=== PATIENT | male | born 1965 | race Caucasian/White ===

== ENCOUNTER 2016-10-21 19:28 | Emergency (ER) | payer BC ==
[2016-10-21 21:05] VITALS: BP 117/85
[2016-10-21 22:42] LABS: Hematocrit 43 % (42-52); Hemoglobin 14.9 g/dl (14.0-18.0); Mean Corpuscular HGB Conc 35 g/dl (31-36); Mean Corpuscular Hemoglobin 33 pg (27-31); Mean Corpuscular Volume 97 fL (80-94); Mean Platelet Volume 9 um3 (7.4-10.4); Red Blood Count 4.49 10^6/ul (4.0-5.4); Red Cell Distribution Width 13 % (10.5-15); White Blood Count 6.8 10^3/ul (3.5-10.8)
[2016-10-21] MEDS ORDERED: predniSONE TAB* 20 MG PO ONE (22:59)
[2016-10-21] MEDS ORDERED: Clindamycin CAP* 150 MG PO ONE (22:59)
--- NOTE | 2016-10-21 23:10 | ED ---
Upper Extremity Pain - HPI Summary HPI Summary: Patient presents to ED with CC of right forearm and hand swelling x 1 week. Today, developed redness and warmth over the ventral side of the wrist. Pain with flexion and extension. No known injury. Pain is worse with extension and radiates to the elbow. No abrasions or cuts or bug bites noted or to patients knowledge. Denies previous tendonitis or overuse to the hand or wrist. Denies numbness or tingling, but states it is a "tight" feeling. Pain is 8/10 and constant. Ibuprofen with mild relief of symptoms. - History of Current Complaint Chief Complaint: EDExtremityUpper Stated Complaint: RIGHT FOREARM PAIN AND SWELLING Time Seen by Provider: 10/21/16 21:13 Hx Obtained From: Patient Mechanism Of Injury: Twisted Onset/Duration: Started Hours Ago Timing: Constant Severity Initially: Moderate Severity Currently: Moderate Pain Location: Collar, Shoulder, Elbow, Forearm, Wrist Character: Aching, Throbbing Aggravating Factor(s): Lifting, Flexion, Extension, Internal/External Rotation, Abduction, Adduction Alleviating Factor(s): Rest, Ice Associated Signs & Symptoms: Positive: Swelling - Risk Factors Non-Orthopedic Risk Factor: Negative DVT Risk Factors: Negative Septic Arthritis Risk Factor: Negative Compartment Syndrome Risk Factors: Pain - Allergies/Home Medications Allergies/Adverse Reactions: Allergies Allergy/AdvReac Type Severity Reaction Status Date / Time Ceftriaxone [From Rocephin] Allergy Rash And Verified 10/21/16 19:46 Itching Penicillins [PCN] Allergy Unknown Verified 10/21/16 19:47 Reaction Details PMH/Surg Hx/FS Hx/Imm Hx Previously Healthy: Yes - Immunization History Hx Pertussis Vaccination: No Immunizations Up to Date: Unable to Obtain/Confirm Infectious Disease History: No Infectious Disease History: Denies: Traveled Outside the [place] in Last 30 Days - Social History Occupation: Unemployed Lives: With Family Alcohol Use: None Hx Substance Use: No Substance Use Type: Reports: None Hx Tobacco Use: No Smoking Status (MU): Never Smoked Tobacco Review of Systems Constitutional: Negative Eyes: Negative Cardiovascular: Negative Respiratory: Negative Gastrointestinal: Negative Positive: Arthralgia, Myalgia Positive: Other - swelling throughout right hand Neurological: Negative Psychological: Normal All Other Systems Reviewed And Are Negative: Yes Physical Exam Triage Information Reviewed: Yes Vital Signs On Initial Exam: Initial Vitals Temp Pulse Resp BP Pulse Ox 97.6 F 84 16 134/100 98 10/21/16 19:40 10/21/16 19:40 10/21/16 19:40 10/21/16 19:40 10/21/16 19:40 Vital Signs Reviewed: Yes Appearance: Positive: Well-Appearing, Well-Nourished Skin: Positive: Warm, Skin Color Reflects Adequate Perfusion Head/Face: Positive: Normal Head/Face Inspection Eyes: Positive: EOMI, BRIANNE Neck: Positive: Supple, No Lymphadenopathy Respiratory/Lung Sounds: Positive: Clear to Auscultation, Breath Sounds Present Cardiovascular: Positive: Normal, RRR, Pulses are Symmetrical in both Upper and Lower Extremities Musculoskeletal: Positive: Other - right hand swelling, pain with flexion and extension of wrist Neurological: Positive: Sensory/Motor Intact, Alert, Oriented to Person Place, Time, Speech Normal Psychiatric: Positive: Normal AVPU Assessment: Alert Diagnostics - Vital Signs Vital Signs Temp Pulse Resp BP Pulse Ox 10/21/16 21:13 98 F 89 16 117/85 97 10/21/16 20:30 98.0 F 89 117/85 97 10/21/16 19:40 97.6 F 84 16 134/100 98 - Laboratory Lab Results: Lab Results 10/21/16 10/21/16 Range/Units 22:35 22:35 WBC 6.8 (3.5-10.8) 10^3/ul RBC 4.49 (4.0-5.4) 10^6/ul Hgb 14.9 (14.0-18.0) g/dl Hct 43 (42-52) % MCV 97 H (80-94) fL MCH 33 H (27-31) pg MCHC 35 (31-36) g/dl RDW 13 (10.5-15) % Plt Count 297 (150-450) 10^3/ul MPV 9 (7.4-10.4) um3 Neut % (Auto) 39.2 (38-83) % Lymph % (Auto) 46.6 (25-47) % Eddy % (Auto) 7.7 (1-9) % Eos % (Auto) 5.3 (0-6) % Baso % (Auto) 1.2 (0-2) % Absolute Neuts (auto) 2.7 (1.5-7.7) 10^3/ul Absolute Lymphs (auto) 3.2 (1.0-4.8) 10^3/ul Absolute Monos (auto) 0.5 (0-0.8) 10^3/ul Absolute Eos (auto) 0.4 (0-0.6) 10^3/ul Absolute Basos (auto) 0.1 (0-0.2) 10^3/ul Absolute Nucleated RBC 0.01 10^3/ul Nucleated RBC % 0.1 C-React Prot High Sens 0.72 mg/L Result Diagrams: 10/21/16 22:35 Lab Statement: Any lab studies that have been ordered have been reviewed, and results considered in the medical decision making process. Course/Dx - Course Course Of Treatment: US with no DVT. CRP and WBC WNL. Patient given abx and prednisone for possible tenosynovitis vs. tendinitis and infection. Dr. Mack to see patient as well and agrees with plan. No known trauma, so will defer xrays at this time. - Diagnoses Differential Diagnosis/HQI/PQRI: Positive: Contusion, Fracture (Open), Strain, Sprain Provider Diagnoses: Wrist pain, acute Discharge - Discharge Plan Condition: Stable Disposition: HOME Prescriptions: Clindamycin Cap(NF) [Cleocin 300 mg Cap(NF)] 300 mg PO Q6H #28 cap predniSONE TAB* [Deltasone TAB*] 50 mg PO DAILY #5 tab MDD 1 Patient Education Materials: Edema (ED) Referrals: Greyson Carias MD [Primary Care Provider] - Additional Instructions: Take ibuprofen 600mg three times daily Ice for any swelling Prednisone 50mg once daily in the morning for 5 days clindamycin four times daily for 7 days If any symptoms worsen, return to the ED.
--- NOTE | 2016-10-22 07:57 | RAD ---
HISTORY: Right hand and arm swelling COMPARISONS: None relevant TECHNIQUE: Multiple transverse and longitudinal ultrasound images were obtained of the right upper extremity from the level of the internal jugular vein inferiorly through to the infra-cubital veins using grayscale, color Doppler, and spectral Doppler imaging with and without compression and with augmentation. Comparison images were obtained of the contralateral internal jugular vein and subclavian vein. FINDINGS: VEINS: The venous system of the right upper extremity is compressible throughout its course, with normal flow on color Doppler imaging and normal response to augmentation on spectral Doppler imaging. SOFT TISSUES: Unremarkable. OTHER FINDINGS: None. IMPRESSION: NO RIGHT UPPER EXTREMITY DEEP VEIN THROMBOSIS
== END 2016-10-21 23:25 | disposition home or self-care (01) ==
LOC: ED 19:28
DX: M25.531 Pain in right wrist (principal); Z88.1 Allergy status to other antibiotic agents; Z88.0 Allergy status to penicillin
CPT/HCPCS: 36415; 85025; 86141; 99282; A9270-GY; J7512

== ENCOUNTER 2017-07-31 07:00 | Day surgery (SDC) | payer BC ==
[~2017-07-31 07:00] MED LIST: Buffered Lidocaine 0.9% SYRIN* 5 ML/SYR SYRINGE INTRADERM ONE
[2017-07-31] MEDS ORDERED: ceFAZolin 2 GM PREMIX (*) 2 GM/50 ML BAG IVPB ONE (07:13)
[2017-07-31] MEDS ORDERED: Buffered Lidocaine 0.9% SYRIN* 5 ML/SYR SYRINGE ONE (07:13)
[2017-07-31] MEDS ORDERED: Bupivacaine 0.25% SDV* 30 ML ONE (09:04)
[2017-07-31] MEDS ORDERED: Midazolam* 1 MG/ML 2 ML VIAL (2 MG) ONE (09:20)
[2017-07-31] MEDS ORDERED: fentaNYL* 50 MCG/ML 2 ML VIAL (100 MCG VIAL) ONE ×3 (09:20→13:11)
[2017-07-31] MEDS ORDERED: Lidocaine 2% PF * 5 ML VIAL ONE (09:23)
[2017-07-31] MEDS ORDERED: Dexamethasone IV* 4 MG/ML 1 ML (4 MG) ONE (09:23)
[2017-07-31] MEDS ORDERED: Ondansetron INJ* 2 MG/ML VIAL ONE (09:23)
[2017-07-31] MEDS ORDERED: Propofol* 10 MG/ML 20 ML BTL IV PUSH ONE (09:23)
[2017-07-31] MEDS ORDERED: Atracurium* 10 MG/ML 10 ML VIAL ONE (09:24)
[2017-07-31] MEDS ORDERED: Naloxone* 0.4 MG/ML 1 ML VIAL IV PRN (10:00)
[2017-07-31] MEDS ORDERED: DiMENhydriNATE IV* 50 MG/ML VIAL IV PUSH PRN (10:00)
[2017-07-31] MEDS ORDERED: fentaNYL* 50 MCG/ML 2 ML VIAL (100 MCG VIAL) IV PRN (10:00)
[2017-07-31] MEDS ORDERED: Ketorolac INJ* 30 MG/ML 1 ML VIAL IV PRN (10:00)
--- NOTE | 2017-07-31 10:53 | OP ---
Operative Report - Blank - Operative Report Date of Operation: 07/31/17 Note: Preop Dx: Right inguinal hernia Postop Dx: same; also umbilical hernia Procedure: laparoscopic repair RIH w/ mesh; open umbilical hernia repair ( primary) Anesthesia: GET Surgeon: Eve Asst: AUSTIN Arroyo Fluids: 900 ml EBL: negligible Specimen: none Drains: none Findings: dictated
[2017-07-31] MEDS ORDERED: Ketorolac INJ* 30 MG/ML 1 ML VIAL ONE (11:36)
[2017-07-31] MEDS ORDERED: oxyCODONE/Acetamin 5/325 MG* TAB ONE ×2 (11:56→13:14)
[2017-07-31] MEDS: oxyCODONE/Acetamin 5/325 MG* TAB PO PRN ×2 (11:57→13:15)
[2017-07-31 14:15] VITALS: BP 126/86
--- NOTE | 2017-07-31 18:28 | OP ---
CC: Greyson Carias MD * DATE OF OPERATION: 07/31/17 - [facility] DATE OF : 69 SURGEON: Greyson Prado MD REPORTS ANALYST: None. ANESTHESIOLOGIST: Dr. Kidd. ANESTHESIA: General endotracheal. PRE-OP DIAGNOSIS: Right inguinal hernia. POST-OP DIAGNOSES: Right inguinal hernia and umbilical hernia. OPERATIVE PROCEDURE: Laparoscopic preperitoneal repair, right inguinal hernia with mesh and repair of umbilical hernia. ESTIMATED BLOOD LOSS: Minimal. IV FLUIDS: Crystalloid. SPECIMEN: None. DRAINS: None. COMPLICATIONS: None. COUNTS: Instrument, needle, and sponge counts were correct. DESCRIPTION OF PROCEDURE: The patient was brought to the operating room and placed on the table supine. Sequential compression devices were placed on both lower extremities. General anesthesia was administered. He received appropriate intravenous antibiotics. He was prepped and draped in the usual sterile fashion and he had a Damon catheter placed. Time-out was performed. Local anesthetic was infiltrated into the skin and soft tissue prior to making each incision. A curvilinear infraumbilical incision was created and the anterior rectal sheath was incised transversely to the right of midline. The underlying muscles were retracted laterally and a preperitoneal balloon dissector was placed down to the pubic symphysis and then insufflated under direct visualization. The balloon dissector was removed and replaced with a 12- mm blunt port and then carbon dioxide was then insufflated to pressure at 15 mmHg. Under direct visualization, two 5 mm trocars were placed in the lower midline. Dissection proceeded from the midline laterally, identifying the pubic symphysis. Burton's ligament, inferior epigastric vessels laterally. A direct inguinal hernia was noted. Dissection proceeded laterally to the anterior superior iliac spine and the peritoneal sac was dissected off of the retroperitoneum and cord structures. The repair was then performed with a ProGrip mesh cut to cover the direct, indirect, and femoral spaces. The mesh placed into the preperitoneal space was unfurled and a proper position confirmed before desufflating the preperitoneal space under direct visualization. There was some intraperitoneal gas present, and so after removing the 12-mm port, it was decided to go through the umbilical hernia defect to inspect the peritoneum. The umbilical stalk was dissected free from the anterior abdominal wall and transected and hernia defect about 1 cm size was encountered. The port was inserted into the peritoneal cavity and which was insufflated, and direct visualization of the peritoneum and the groin, revealed an excellent coverage of all of the mesh with no evidence of a defect. The carbon dioxide was then released and the umbilical hernia defect was closed with 0 Vicryl using a U stitch and a single interrupted stitch in the midline as well. The umbilical stalk was reapproximated to the anterior abdominal wall with 3-0 Vicryl and then the skin incisions were all closed with 4-0 Monocryl in a subcuticular fashion. DermaFlex was applied to the sites. The patient tolerated the procedure well, was extubated and transferred to Recovery in stable condition. [id number]/CPS #: [id number] MTDD
== END 2017-07-31 14:31 | disposition home or self-care (01) ==
LOC: OR 07:00
PROVIDERS: ATTEND Surgery
DX: K40.90 Unilateral inguinal hernia, without obstruction or gangrene, not specified as recurrent (principal); K42.9 Umbilical hernia without obstruction or gangrene; F32.9 Major depressive disorder, single episode, unspecified
CPT/HCPCS: A9270-GY; J0690; J1100; J1885; J2250; J2405; J2704; J3010

== ENCOUNTER 2018-08-20 17:11 | Emergency (ER) | payer BC ==
--- NOTE | 2018-08-20 17:16 | UC ---
General HPI - HPI Summary HPI Summary: 25 years go 5 ptx's in a row, approx every couple months. Ultimatetly has surgery, part of upper lung removed, no issues since then. However, last evening, c/o R upper ant chest pain. Progresses through today. No palpitaions , no sob. Pain can be modified by turning head to the far right. No rash. Hx atrial fib in early , used to take metoprolol, but not now. Citalopram x approx 1 year. Ibuprofen last night and today. No GI / issues. Moves well , was working outdoors last 3 days, no known injury. - History of Current Complaint Stated Complaint: CHEST PAIN Time Seen by Provider: 08/20/18 17:12 Hx Obtained From: Patient - Allergy/Home Medications Allergies/Adverse Reactions: Allergies Allergy/AdvReac Type Severity Reaction Status Date / Time ceftriaxone [From Rocephin] Allergy Rash And Verified 08/20/18 17:20 Itching Penicillins Allergy Rash Verified 08/20/18 17:20 PMH/Surg Hx/FS Hx/Imm Hx Previously Healthy: Yes - Surgical History Surgical History: Yes Surgery Procedure, Year, and Place: PARTIAL LOBECTOMY RIGHT 1993. RIGHT KNEE IND'S X2 -2014 - Family History Known Family History: Positive: Non-Contributory - Social History Alcohol Use: None Substance Use Type: None Smoking Status (MU): Never Smoked Tobacco Have You Smoked in the Last Year: No Review of Systems All Other Systems Reviewed And Are Negative: Yes Constitutional: Positive: Negative Skin: Positive: Negative Eyes: Positive: Negative ENT: Positive: Negative Respiratory: Positive: Other - see hpi Cardiovascular: Positive: Other - see hpi Gastrointestinal: Positive: Other - see hpi Genitourinary: Positive: Negative Motor: Positive: Negative Neurovascular: Positive: Negative Musculoskeletal: Positive: Negative Neurological: Positive: Negative Psychological: Positive: Negative Is Patient Immunocompromised?: No Physical Exam Triage Information Reviewed: Yes Appearance: Well-Appearing, Well-Nourished Vital Signs Reviewed: Yes Eye Exam: Normal ENT Exam: Normal Dental Exam: Normal Neck exam: Normal Neck: Positive: Supple Respiratory Exam: Other - Subj discomfort R upper ant chest Respiratory: Positive: Lungs clear, Normal breath sounds, No respiratory distress, No accessory muscle use Cardiovascular Exam: Normal Cardiovascular: Positive: RRR, No Murmur, Pulses Normal - hr correlates with R radial pulse, Brisk Capillary Refill Abdominal Exam: Normal Abdomen Description: Positive: Nontender Musculoskeletal Exam: Normal - gait steady, moves x 4 ext's well, Other - no unilateral edema, denies subjective discomfort in lower ext(s) Neurological Exam: Normal - grossly nonfocal Psychological Exam: Normal - conversing easily and appropriately. nad. Skin Exam: Normal - no visible or reported rash Course/Dx - Course Course Of Treatment: SR at 69 bmp. pr 148 Qtx 431. CXR - nad. [facility]. Reviewed cxr / ekg / coa / tx plan with Mr. Andrade. I recommend that the go to the Emergency Dept. Mr. Andrade carefully considered this, but declines. He is aware of the risk of undx'd ptx, pe, cardiopulmonary issue not noted on above studies. Will seek medical attention if not resolved or worse or new issues. Questions as posed answered to the best of my ability. - Diagnoses Provider Diagnosis: Chest pain Discharge - Sign-Out/Discharge Documenting (check all that apply): Patient Departure All imaging exams completed and their final reports reviewed: Yes - Discharge Plan Condition: Stable Disposition: HOME Patient Education Materials: Chest Pain (ED) Forms: *Work Release Referrals: Greyson Carias MD [Primary Care Provider] - Additional Instructions: I recommend that you go to the Emergency Department for further evaluation. Otherwise, please call Dr. Carias tomorrow to schedule follow up as soon as possible. Call 911 and go to the Emergency Department for any worse or new symptoms. - Billing Disposition and Condition Condition: STABLE Disposition: Home
--- OUTSIDE RECORDS SUMMARY | 2018-08-20 17:17 | XMS REPORT | Continuity of Care Document ---
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 Greyson Carias MD Primary Care Physician Unavailable Payers Date Identification Numbers Payment Provider Subscriber Policy Number: [id number] Of YENNI العليison [employer] PayID: [id number] [address] [address] [place] [address] Advance Directives Description No Information Available Problems Active Problems Provider Date Atrial fibrillation Greyson Carias MD Onset: 06/13/2011 Disorder of digestive system Ginette Mckeon PA-C Onset: 04/29/2018 Abdominal pain Ginette Mckeon PA-C Onset: 04/29/2018 Diarrhea Ginette Mckeon PA-C Onset: 04/29/2018 Family History Date Family Member(s) Observation Comments Mother Celiac Disease Social History Type Date Description Comments Sex Unknown Tobacco Use Start: Unknown Patient has never smoked Smoking Status Reviewed: 04/29/18 Patient has never smoked Allergies, Adverse Reactions, Alerts Active Allergies Reaction Severity Comments Date Penicillin rash 12/19/2011 Ceftriaxone rash 12/19/2011 Medications Active Medications SIG Qnty Indications Ordering Provider Date Zaleplon take 1 to 2 30caps F33.0 Greyson Carias MD 06/21/2016 5mg Capsules capsules by mouth once daily at bedtime if needed for insomnia Vitamin D 1 by mouth every Unknown 09/08/2015 2000Unit day Tablets Citalopram 1 by mouth every 30tabs Greyson Carias MD 02/23/2015 Hydrobromide day 20mg Tablets Immunizations CPT Code Status Date Vaccine Lot # [id number] Given 01/25/2018 Influenza Virus Vaccine, Quadrivalent, Split, Preservative Free 43944 Given 01/08/2017 Influenza Virus Vaccine, Quadrivalent, Split, Preservative Free 95759 Given 08/22/2016 Hepatitis A Vaccine, [place] [address] Given 01/27/2016 Influenza Virus Vaccine, Quadrivalent, Split, Preservative Free 48505 Given 01/28/2015 Influenza Virus Vaccine, Quadrivalent, Split, Preservative Free 30418 Given 10/22/2014 MMR Vaccine, Live, For Subcutaneous Use 98965 Given 10/03/2013 Yellow Fever Vaccine 56880 Given 10/03/2013 Typhoid Vaccine Vicps Intramuscular 19130 Given 10/07/2009 Hepatitis B Vaccine Adult 11232 Given 08/20/2009 Hepatitis B Vaccine Adult 27044 Given 04/17/2008 MMR Vaccine, Live, For Subcutaneous Use 12411 Given 06/19/2007 Tetanus, Diphtheria Toxoids/Acellular Pertussis Vaccine 7 Or > Vital Signs Date Vital Result Comment 04/29/2018 9:13am Height 70 inches 5'10" Weight 190.00 lb BP Systolic 124 mmHg BP Diastolic 82 mmHg Heart Rate 66 /min BMI (Body Mass Index) 27.3 kg/m2 Results Test Date Facility Test Result H/L Range Note Laboratory test [facility] Bre[facility] Test NEGATIVE finding [address] [place] [address] [phone] Laboratory test [facility] Clotest SEE RESULT 1, 2 finding 9 BELOW Laboratory test [facility] Surgical SEE RESULT 3 finding 9 Interface BELOW Order Laboratory test [facility] C Difficile <pending> finding 8 PCR Unspec Spec Culture Stool & [facility] Culture Stool <pending> O&P 8 O&P Ova & Parasite Exam <pending> Celiac Panel! 04/02/2018 [facility] Endomysial AB QN <pending> Serum Transglutaminase 04/02/2018 [facility] Transglutaminase AB <pending> Iga/Igg Iga Transglutaminase AB Igg <pending> Gliadin Igg/Iga AB 04/02/2018 [facility] Gliadin Iga <pending> Gliadin Igg <pending> Laboratory test finding 04/02/2018 N2N/CCD Import Albumin 4.9 g/dL 3.2- 5.2 Albumin/Globulin Ratio 1.9 1 1-3 Alkaline Phosphatase 87 U/L 34-104 Alt 36 U/L 7-52 Anion Gap 8 mmol/L 2-11 Ast 29 U/L 13-39 BUN/Creatinine Ratio 14.7 1 8-20 Blood Urea Nitrogen 11 mg/dL 6-24 Calcium 10.2 mg/dL 8.6-10.3 Chloride 103 mmol/L 101-111 Co2 Carbon Dioxide 27 mmol/L 22-32 Creatinine 0.75 mg/dL 0.67-1.17 Egfr 133.4 1 4 Egfr Non- 110.2 1 Globulin 2.6 g/dL 2-4 Glucose 91 mg/dL 70-100 Potassium 4.6 mmol/L 3.5-5 Sodium 138 mmol/L 135-145 TSH (Thyroid Stim Horm) 0.75 mcIU/mL 0.34-5.6 5 Tissue Transglutaminase Igg AB <pending> Total Bilirubin 0.50 mg/dL 0.2-1 Total Protein 7.5 g/dL 6.4-8.9 CBC Auto Diff 04/02/2018 N2N/CCD Import Abs Basophils 0.1 10^3/uL 0-0.2 Abs Eosinophils 0.3 10^3/uL 0-0.6 Abs Lymphocytes 2.2 10^3/uL 1-4.8 Abs Monocytes 0.7 10^3/uL 0-0.8 Abs Neutrophils 2.7 10^3/uL 1.5-7.7 Abs Nucleated RBC 0 10^3/uL Basophil % 1.1 % Eosinophil % 5.1 % Granulocyte % 45.6 % Hematocrit 43 % 42-52 Hemoglobin 14.7 g/dL 14-18 Lymphocyte % 36.9 % Mean Corpuscular HGB Conc 35 g/dL 31-36 Mean Corpuscular Hemoglobin 32 pg High 27-31 Mean Corpuscular Volume 92 fL 80-94 Mean Platelet Volume 9.0 fL 7.4-10.4 Monocyte % 11.3 % Nucleated Red Blood Cells % 0.1 1 Platelet Count 281 10^3/uL 150-450 Red Blood Count 4.64 10^6/uL 4-5.4 Red Cell Distribution Width 13 % 10.5-15 White Blood Count 5.9 10^3/uL 3.5-10.8 Laboratory test 10/21/2016 N2N/CCD Import CRP High 0.72 mg/L 6 finding Sensitivity CBC Auto Diff 10/21/2016 N2N/CCD Import Abs Basophils 0.1 10^3/uL 0-0.2 Abs Eosinophils 0.4 10^3/uL 0-0.6 Abs Lymphocytes 3.2 10^3/uL 1.0-4.8 Abs Monocytes 0.5 10^3/uL 0-0.8 Abs Neutrophils 2.7 10^3/uL 1.5-7.7 Abs Nucleated RBC 0.01 10^3/uL Basophil % 1.2 % 0-2 Eosinophil % 5.3 % 0-6 Granulocyte % 39.2 % 38-83 Hematocrit 43 % 42-52 Hemoglobin 14.9 g/dL 14.0-18.0 Lymphocyte % 46.6 % 25-47 Mean Corpuscular HGB Conc 35 g/dL 31-36 Mean Corpuscular Hemoglobin 33 pg High 27-31 Mean Corpuscular Volume 97 fL High 80-94 Mean Platelet Volume 9 um3 7.4-10.4 Monocyte % 7.7 % 1-9 Nucleated Red Blood Cells % 0.1 1 Platelet Count 297 10^3/uL 150-450 Red Blood Count 4.49 10^6/uL 4.0-5.4 Red Cell Distribution Width 13 % 10.5-15 White Blood Count 6.8 10^3/uL 3.5-10.8 1 [id number] 2 SEE RESULT BELOW Name: ERASTO REYES : [address]: Reinier Davila MD Acct: [id number] Unit: [id number] AGE: 53 Location: [facility] Re06/25/18 SEX: M Status: DEP REF SPEC: [id number] JEAN: 06/25/18-[address] [facility] [address]: Reinier Davila MD REQ: [id number] RECD: 06/25/18 STATUS: REINA ABIG DR: Greyson Carias MD _ SOURCE: GAS ANTRUM SPDESC: ORDERED: Clotest COMMENTS: [id number] Procedure Result Reported Site Clotest Final 06/26/18- 0753 ML Clotest Negative * ML - Main Lab . END OF REPORT DEPARTMENT OF PATHOLOGY, [address] [place] [address] Abilio Crowe M.D. Director [facility] # [id number] SEE RESULT BELOW Name: ERASTO REYES Marita : [address]: Reinier Davila MD Acct: [id number] Unit: [id number] AGE: 53 Location: [facility] Re06/25/18 SEX: M Status: DEP REF SPEC: [id number] JEAN: 06/25/18-[address]: Reinier Davila MD REQ: [id number] RECD: 06/25/18-1199 STATUS: REINA BAIG DR: Greyson Carias MD _ SOURCE: GAS ANTRUM SPDESC: ORDERED: Clotest COMMENTS: [id number] Procedure Result Reported Site Clotest Final 06/26/18- 0753 ML Clotest Negative * ML - Main Lab . END OF REPORT DEPARTMENT OF PATHOLOGY, [address] [place] [address] Abilio Crowe M.D. Director [facility] # [id number] 3 SEE RESULT BELOW Name: ERASTO REYES : [address]: Reinier Davila MD Acct: [id number] Unit: [id number] AGE: 53 Location: [facility] Re06/25/18 SEX: M Status: DEP REF SPEC: [id number] JEAN: 06/25/18-[address]: Reinier Davila MD REQ: [id number] RECD: 06/25/181017 STATUS: SOUT _ ORDERED: LEVEL 4/3 FINAL DIAGNOSIS 1. Small bowel, duodenum, biopsy: -- Small bowel mucosa with normal villous architecture and no significant pathologic abnormality. 2. Colon, hepatic flexure, biopsy: -- Hyperplastic polyp. 3. Colon, random biopsies: -- Large intestinal mucosa with mild architectural disorder and scattered lamina propria muciphages compatible with repair. -- No evidence of microscopic/lymphocytic colitis, collagenous colitis or other acute or chronic inflammatory bowel process identified. Comment: Findings in part 3 are indicative of a largely resolved prior insult. CLINICAL HISTORY Diarrhea POST-OPERATIVE DIAGNOSIS EGD: esophagus - normal; gastric - normal, biopsy for SELMA test; duodenum - normal, biopsy for celiac; colonoscopy: to terminal ileum; polyp - hepatic flexure; random biopsy CONTINUED ON NEXT PAGE DEPARTMENT OF PATHOLOGY, [address] [place] [address] Abilio Crowe M.D. Director [facility] # [id number] RUN DATE: 06/26/18 [facility] LAB LIVE PAGE 2 Patient: ERASTO REYES [id number] (Continued) GROSS DESCRIPTION (Continued) GROSS DESCRIPTION 1. The specimen is received in formalin labeled, Biopsy Duodenum, and consists of a 0.5 x 0.5 by up to 0.2 cm aggregate of carr-pink irregular soft tissue fragments which is submitted entirely in one cassette. 2. The specimen is received in formalin labeled, Biopsy Hepatic Flexure Polyp, and consists of two carr-pink irregular soft tissue fragments measuring 0.2 x 0.2 x 0.1 cm and 0.4 x 0.2 x 0.1 cm which are submitted entirely in one cassette. 3. The specimen is received in formalin labeled, Random Colon Biopsies, and consists of a 0.8 x 0.5 x 0.2 cm aggregate of carr-pink irregular soft tissue fragments which is submitted entirely in one cassette. Signed by and Reported on: Abilio Crowe MD 1524 END OF REPORT DEPARTMENT OF PATHOLOGY, [address] [place] [address] Abilio Crowe M.D. Director [facility] # [id number] 4 Because ethnic data is not always readily available, this report includes an eGFR for both -Americans and non- Americans. The National Kidney Disease Education Program (NKDEP) does not endorse the use of the MDRD equation for patients that are not between the ages of 18 and 70, are , have extremes of body size, muscle mass, or nutritional status, or are non- or non-. According to the National Kidney Foundation, irrespective of diagnosis, the stage of the disease is based on the level of kidney function: Stage Description GFR(mL/min/1.73 m(2)) 1 Kidney damage with normal or decreased GFR 90 2 Kidney damage with mild decrease in GFR 60-89 3 Moderate decrease in GFR 30-59 4 Severe decrease in GFR 15-29 5 Kidney failure <15 (or dialysis) 5 [id number] 6 Low risk: <1.00 Average risk: 1.00-3.00 High risk: >3.00 Procedures Date Code Description Status 07/16/2018 29387 Breath Hydrogen Completed 06/25/2018 06865 Moderate Sedation Services; Same Phys Each Additional 15 Completed Mins 06/25/2018 02891 Moderate Sedation Services; Same Phys Intl 15 Mins; PT >=5 Completed Years 06/25/2018 35574 Colonscopy+Biopsy Completed 06/25/2018 83056 EGD+Biopsy Single Or Multiple Completed 04/29/2010 83700 EGD+Biopsy Single Or Multiple Completed Encounters Type Date Location Provider Dx Diagnosis Office Visit 04/29/2018 [facility] Arce R19.7 Diarrhea, 9:15a [facility] unspecified R10.30 Lower abdominal pain, unspecified Z83.79 Family history of other diseases of the digestive system Plan of Treatment No Information Available
[2018-08-20 17:20] VITALS: BP 149/93
== END 2018-08-20 18:10 | disposition home or self-care (01) ==
LOC: UCEAST 17:11
DX: R07.89 Other chest pain (principal); I48.91 Unspecified atrial fibrillation; Z90.2 Acquired absence of lung [part of]; Z88.1 Allergy status to other antibiotic agents; Z88.0 Allergy status to penicillin
CPT/HCPCS: 71046; 99211; G0463

== ENCOUNTER 2018-08-20 19:04 | Emergency (ER) | payer BC ==
--- NOTE | 2018-08-20 19:58 | ED ---
HPI Chest Pain - HPI Summary HPI Summary: This patient is a 53 year old M presenting to ED with a chief complaint of R- sided CP since 1700 today. The patient was at rest and reports that the pain came on gradually. 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 The patient reports he is also fairly active. The CC is described as non- radiating. The patient rates the pain 2/10 in severity. Symptoms aggravated by turning his head to the right. Symptoms alleviated by nothing. The patient denies any other sx. 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 He states that this pain is similar to when he had pneumothorax. The patient was sent here from [facility] where he had a negative EKG and CXR. 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; denies any other sx - Allergy/Home Medications Allergies/Adverse Reactions: Allergies Allergy/AdvReac Type Severity Reaction Status Date / Time ceftriaxone [From Rocephin] Allergy Rash And Verified 08/20/18 17:20 Itching Penicillins Allergy Rash Verified 08/20/18 17:20 PMH/Surg Hx/FS Hx/Imm Hx Endocrine/Hematology History: Denies: Hx Diabetes Cardiovascular History: Reports: Other Cardiovascular Problems/Disorders - A- FIB 1993 Denies: Hx Hypertension, Hx Pacemaker/ICD Respiratory History: Reports: Other Respiratory Problems/Disorders - HISTORY OF SPONTANEOUS PNEUMOTHORAX X 4 SURGERY 1993 GI History: Comment Only: Hx Hiatal Hernia - INGUINAL HERNIA History: Denies: Hx Renal Disease Musculoskeletal History: Reports: Hx Tendonitis - RIGHT WRIST OCTOBER 2016 Sensory History: Reports: Hx Contacts or Glasses Denies: Hx Hearing Aid Opthamlomology History: Reports: Hx Contacts or Glasses Psychiatric History: Reports: Hx Depression - ON MEDICATION Denies: Hx Panic Disorder - Surgical History Surgery Procedure, Year, and Place: PARTIAL LOBECTOMY RIGHT 1993. 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 GENERAL: Patient is a well-developed and nourished MALE who is lying comfortable in the stretcher. Patient is not in any acute respiratory distress. HEAD AND FACE: No signs of trauma. No ecchymosis, hematomas or skull depressions. No sinus tenderness. EYES: PERRLA, EOMI x 2, No injected conjunctiva, no nystagmus. EARS: Hearing grossly intact. Ear canals and tympanic membranes are within normal limits. MOUTH: Oropharynx within normal limits. NECK: Supple, trachea is midline, no adenopathy, no JVD, no carotid bruit, no c- spine tenderness, neck with full ROM CHEST: Symmetric, no tenderness at palpation LUNGS: Clear to auscultation bilaterally. No wheezing or crackles. CVS: Regular rate and rhythm, S1 and S2 present, no murmurs or gallops appreciated. ABDOMEN: Soft, non-tender. No signs of distention. No rebound no guarding, and no masses palpated. Bowel sounds are normal. EXTREMITIES: FROM in all major joints, no edema, no cyanosis or clubbing. NEURO: Alert and oriented x 3. No acute neurological deficits. Speech is normal and follows commands. SKIN: Dry and warm Triage Information Reviewed: Yes Vital Signs On Initial Exam: Initial Vitals Temp Pulse Resp BP Pulse Ox 98.1 F 71 18 149/100 97 08/20/18 19:06 08/20/18 19:06 08/20/18 19:06 08/20/18 19:06 08/20/18 19:06 Vital Signs Reviewed: Yes Diagnostics - Vital Signs Vital Signs Temp Pulse Resp BP Pulse Ox 08/20/18 19:06 98.1 F 71 18 149/100 97 - Laboratory Result Diagrams: 08/20/18 19:47 08/20/18 19:47 Lab Statement: Any lab studies that have been ordered have been reviewed, and results considered in the medical decision making process. - Radiology CXR Radiology Interpretation Completed By: ED Physician Summary of Radiographic Findings: No acute processes. Pending radiologist official interpretation. - EKG 1915 Cardiac Rate: NL - 60 BPM EKG Rhythm: Sinus Rhythm Summary of EKG Findings: NSR at 60 BPM, normal axis, normal interval, and no ischemic changes. Re-Evaluation - Re-Evaluation First Eval Re-Evaluation Time: 21:13 Comment: Discussed results with the patient and plan for discharge. Patient understands and agrees with this plan. Chest Pain Course/Dx - Course Assessment/Plan: This patient is a 53 year old M presenting to ED with a chief complaint of R-sided CP since 1700 today. EKG reveals NSR at 60 BPM, normal axis , normal interval, and no ischemic changes. CXR reveals no acute processes. 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 The patient will be discharged with dx of chest wall pain. Patient understands and agrees with this plan. - Chest Pain Differential Diagnosis/HQI/PQRI: Chest Wall, Other: - chest wall pain - Diagnoses Provider Diagnoses: Chest wall pain Discharge - Sign-Out/Discharge Documenting (check all that apply): Patient Departure - discharge Patient Received Moderate/Deep Sedation with Procedure: No - Discharge Plan Condition: Stable Disposition: HOME Patient Education Materials: Chest Wall Pain (ED) Referrals: Greyson Carias MD [Primary Care Provider] - 3 Days Additional Instructions: PLEASE RETURN TO THE ED IMMEDIATELY FOR WORSENING OR CONCERNING SYMPTOMS. - Attestation Statements Document Initiated by Scribe: Yes Documenting Scribe: Stanley Acevedo Provider For Whom Florinibe is Documenting (Include Credential): Maraí Elena Gilbert MD Scribe Attestation: Stanley Albrecht, scribed for María Elena Gilbert MD on 08/20/18 at 2113. Status of Scribe Document: Ready
[2018-08-20 20:18] LABS: ABS Basophils 0.1 10^3/ul (0-0.2); ABS Eosinophils 0.2 10^3/ul (0-0.6); ABS Lymphocytes 2.6 10^3/ul (1.0-4.8); ABS Monocytes 0.6 10^3/ul (0-0.8); ABS Neutrophils 1.5 10^3/ul (1.5-7.7); Eosinophil % 4.8 %; Hematocrit 37 % (42-52); Hemoglobin 12.5 g/dL (14.0-18.0); Lymphocyte % 52.6 %; Mean Corpuscular HGB Conc 34 g/dL (31-36); Mean Corpuscular Hemoglobin 32 pg (27-31); Mean Corpuscular Volume 92 fL (80-94); Mean Platelet Volume 8.2 fL (7.4-10.4); Nucleated Red Blood Cells % 0.2; Platelet Count 272 10^3/uL (150-450); Red Blood Count 3.97 10^6 /uL (4.18-5.48); Red Cell Distribution Width 13 % (10.5-15)
[2018-08-20 20:28] LABS: Activated Partial Thrombo Time 28.9 seconds (26.0-36.3); INR 1.15 (0.82-1.09)
[2018-08-20 20:37] LABS: Albumin 4.2 g/dL (3.2-5.2); Albumin/Globulin Ratio 1.7 (1-3); BUN/Creatinine Ratio 15.6 (8-20); Calcium 9.2 mg/dL (8.6-10.3); EGFR African American 128.9 (>60); EGFR Non-African American 106.5 (>60); Globulin 2.5 g/dL (2-4); Potassium 4.2 mmol/L (3.5-5.0); Total Bilirubin 0.4 mg/dL (0.2-1.0); Total Protein 6.7 g/dL (6.4-8.9)
[2018-08-20 21:38] VITALS: BP 122/85
== END 2018-08-20 21:36 | disposition home or self-care (01) ==
LOC: ED 19:04
DX: R07.89 Other chest pain (principal); I48.91 Unspecified atrial fibrillation; Z88.0 Allergy status to penicillin; Z88.3 Allergy status to other anti-infective agents; F32.9 Major depressive disorder, single episode, unspecified; Z79.899 Other long term (current) drug therapy
CPT/HCPCS: 36415; 71045; 80053; 82550; 83735; 84484; 85025; 85379; 85610; 85730; 93005; 99282